=== PATIENT | female | born 1980 | race Caucasian/White ===

== ENCOUNTER 2016-08-22 13:56 | Emergency (ER) | payer MEDICARE, MEDICAID ==
[~2016-08-22] VITALS: Ht 160 cm; Wt 72.7 kg
[~2016-08-22 13:56] MED LIST: ATOM60CA PO; BUPR100T6 PO; HYDR50CA PO; OLAN10TA3 PO; OLAN20TA3 PO; TOPI100T24 PO
[2016-08-22] MEDS ORDERED: SODIUM CHLORIDE 0.9% 1,000ML IVBOLUS ONE (14:30)
[2016-08-22] MEDS ORDERED: ZIPRASIDONE 20 MG INJ IM PRN ×2 (14:30)
[2016-08-22 15:15] LABS: BLOOD UREA NITROGEN 19 mg/dL (7-18)
[2016-08-22 15:18] LABS: ASPARTATE AMINO TRANSFERASE 61 U/L (15-37)
[2016-08-22] MEDS ORDERED: ZIPRASIDONE 20 MG INJ IM ONE (15:19)
[2016-08-22 17:17] VITALS: BP 119/61
== END 2016-08-22 17:53 | disposition home or self-care (01) ==
LOC: ED 14:16
DX: Z02.89 Encounter for other administrative examinations (principal); F15.20 Other stimulant dependence, uncomplicated; Z72.89 Other problems related to lifestyle; F32.9 Major depressive disorder, single episode, unspecified; F41.1 Generalized anxiety disorder; F17.200 Nicotine dependence, unspecified, uncomplicated
CPT/HCPCS: 36415; 80053; 80307; 85025; 96360; 96361; 96372; 99285; J3486; J7030

== ENCOUNTER 2016-09-12 22:48 | Emergency (ER) | payer MEDICARE, MEDICAID ==
[~2016-09-12] VITALS: Ht 160 cm; Wt 67.0 kg
[2016-09-12 22:51] VITALS: BP 132/92
== END 2016-09-12 23:37 ==
LOC: ED 23:27
DX: Z76.0 Encounter for issue of repeat prescription (principal)
CPT/HCPCS: 99283

== ENCOUNTER 2016-12-11 13:55 | Emergency (ER) | payer MEDICARE, MEDICAID ==
[~2016-12-11] VITALS: Ht 160 cm; Wt 67.2 kg
[2016-12-11] MEDS ORDERED: LORazepam 1MG TABLET ONE (14:17)
[2016-12-11] MEDS ORDERED: DIPH,PERTUSS(ACELL),TET VAC/PF 0.5 ML IM-VACC ONE (14:17)
[2016-12-11] MEDS ORDERED: DIPHTHERIA-TETANUS ADULT 0.5ML IM-VACC ONE (14:30)
[2016-12-11] MEDS ORDERED: LORazepam 1MG TABLET PO ONE (14:30)
[2016-12-11 14:57] LABS: BLOOD UREA NITROGEN 8 mg/dL (7-18)
[2016-12-11 14:59] LABS: HEMATOCRIT 35.3 % (34.6-47.8); WHITE BLOOD COUNT 6.2 x10^3/uL (3.4-10)
[2016-12-11 15:03] LABS: ACETAMINOPHEN < 2 mcg/mL (10-30)
[2016-12-11 16:00] LABS: DAU SCREEN DISCLAIMER
[2016-12-11 16:17] LABS: HCG UR OBC PASS
[2016-12-11 17:11] VITALS: BP 111/60
== END 2016-12-11 18:15 | disposition home or self-care (01) ==
LOC: ED 16:06
DX: Z00.8 Encounter for other general examination (principal); F17.200 Nicotine dependence, unspecified, uncomplicated
CPT/HCPCS: 36415; 71010; 80048; 80307; 80329; 81001; 81025; 82040; 85025; 93005; 99285; G0480

== ENCOUNTER 2017-07-01 18:32 | Emergency (ER) | payer MEDICARE, MEDICAID ==
[~2017-07-01] VITALS: Ht 160 cm; Wt 66.9 kg
[2017-07-01 19:06] LABS: BASOPHILS # (AUTO) 0.04 x10^3/uL (0-0.1); BASOPHILS % (AUTO) 0 % (0-1); EOSINOPHILS # (AUTO) 0.08 x10^3/uL (0-0.4); EOSINOPHILS % (AUTO) 1 % (1-7); LYMPHOCYTES # (AUTO) 1.36 x10^3/uL (1-3.4); LYMPHOCYTES % (AUTO) 14 % (22-44); MD NO; MEAN CORPUSCULAR HEMOGLOBIN 31.3 pg (27.0-34.8); MEAN CORPUSCULAR HGB CONC 34.3 g/dL (32.4-35.8); MEAN CORPUSCULAR VOLUME 91.2 fL (80-100); MEAN PLATELET VOLUME 9.6 fL (7.4-10.4); MONOCYTES # (AUTO) 0.92 x10^3/uL (0.2-0.8); MONOCYTES % (AUTO) 10 % (2-9); NEUTROPHILS # (AUTO) 7.33 x10^3/uL (1.8-6.8); NEUTROPHILS % (AUTO) 75 % (42-75); PLATELET COUNT 171 x10^3/uL (130-400); RED BLOOD COUNT 4.41 x10^6/uL (3.82-5.3); RED CELL DISTRIBUTION WIDTH 13.8 % (9.6-15.2)
[2017-07-01 19:16] LABS: ALBUMIN 4.3 g/dL (3.4-5.0); ANION GAP 10 mmol/L (5-15); CALCIUM 8.2 mg/dL (8.5-10.1); CHLORIDE 104 mmol/L (98-107)
[2017-07-01 19:22] LABS: ALANINE AMINOTRANSFERASE 31 U/L (12-78); ALKALINE PHOSPHATASE 74 U/L (45-117); BILIRUBIN,TOTAL 0.6 mg/dL (0.2-1.0); CREATININE 0.99 mg/dL (0.55-1.02); SALICYLATE LEVEL 2.5 mg/dL (2.8-20.0); TOTAL PROTEIN 8.1 g/dL (6.4-8.2)
[2017-07-01 19:23] LABS: ACETAMINOPHEN < 2 mcg/mL (10-30)
[2017-07-01] MEDS ORDERED: ZIPRASIDONE 20 MG INJ IM ONE ×2 (19:41→20:00)
[2017-07-02 02:02] VITALS: BP 120/69
== END 2017-07-02 02:05 | disposition home or self-care (01) ==
LOC: ED 19:26
DX: F41.1 Generalized anxiety disorder (principal); Z72.9 Problem related to lifestyle, unspecified; F15.129 Other stimulant abuse with intoxication, unspecified; Z79.899 Other long term (current) drug therapy; F32.9 Major depressive disorder, single episode, unspecified; F43.10 Post-traumatic stress disorder, unspecified
CPT/HCPCS: 36415; 80053; 80307; 80329; 84703; 85025; 96372; 99284; J3486; G0480

== ENCOUNTER 2017-08-05 09:09 | Emergency (ER) | payer MEDICARE, MEDICAID ==
[~2017-08-05] VITALS: Ht 160 cm; Wt 68.0 kg
[2017-08-05 09:11] VITALS: BP 102/70
[2017-08-05] MEDS ORDERED: BACITRACIN ZINC OINT 500U/GM, 0.9 GM ONE (10:01)
== END 2017-08-05 10:41 | disposition home or self-care (01) ==
LOC: ED 10:35
DX: L03.115 Cellulitis of right lower limb (principal)
CPT/HCPCS: 82962; 99283

== ENCOUNTER 2017-10-11 02:17 | Emergency (ER) | payer MEDICARE, MEDICAID ==
[~2017-10-11] VITALS: Ht 167.6 cm; Wt 66.6 kg
[2017-10-11 02:18] VITALS: BP 138/63
[2017-10-11] MEDS ORDERED: LORazepam 1MG TABLET PO ONE (03:00)
[2017-10-11] MEDS ORDERED: LORazepam 1MG TABLET ONE (03:00)
== END 2017-10-11 03:24 | disposition home or self-care (01) ==
LOC: ED 03:10
DX: F41.1 Generalized anxiety disorder (principal); Z72.9 Problem related to lifestyle, unspecified; R21 Rash and other nonspecific skin eruption; F32.9 Major depressive disorder, single episode, unspecified; F43.10 Post-traumatic stress disorder, unspecified; Z88.6 Allergy status to analgesic agent; Z88.8 Allergy status to other drugs, medicaments and biological substances
CPT/HCPCS: 99284

== ENCOUNTER 2017-12-19 20:55 | Emergency (ER) | payer MEDICARE, MEDICAID ==
[~2017-12-19] VITALS: Ht 160 cm; Wt 70.0 kg
[2017-12-19 21:11] VITALS: BP 128/73
[2017-12-19] MEDS ORDERED: IBUPROFEN 200 MG TABLET PO ONE (22:00)
[2017-12-19] MEDS ORDERED: IBUPROFEN 200 MG TABLET ONE (22:24)
== END 2017-12-19 22:30 | disposition home or self-care (01) ==
LOC: ED 22:24
DX: G43.009 Migraine without aura, not intractable, without status migrainosus (principal); Z72.9 Problem related to lifestyle, unspecified; F43.10 Post-traumatic stress disorder, unspecified; F41.1 Generalized anxiety disorder
CPT/HCPCS: 99283

== ENCOUNTER 2018-10-10 15:56 | Emergency (ER) | payer OTHER, MEDICARE, MEDICAID ==
[~2018-10-10] VITALS: Ht 160 cm; Wt 81.0 kg
[~2018-10-10 15:56] MED LIST changes: +HYDR100C2 PO
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
--- NOTE | 2018-10-10 16:14 | NUR ---
DR TORRES AT BEDSIDE TO DORITA PT
--- NOTE | 2018-10-10 16:19 | NUR ---
WHEN CHECKING PUPILS, PT BEGINS SHAKING HEAD "NO" AND MOANING. TURNED HEAD TO SIDE UPON COMMAND. REPEATS "COLD" WHEN BLANKET REMOVED.
--- NOTE | 2018-10-10 16:20 | NUR ---
REPORT TO VAZQUEZ ROSAS.
[2018-10-10 16:44] LABS: BASOPHILS # (AUTO) 0.02 x10^3/uL (0-0.1); BASOPHILS % (AUTO) 0 % (0-1); EOSINOPHILS # (AUTO) 0.13 x10^3/uL (0-0.4); EOSINOPHILS % (AUTO) 1 % (1-7); LYMPHOCYTES # (AUTO) 0.88 x10^3/uL (1-3.4); LYMPHOCYTES % (AUTO) 9 % (22-44); MD NO; MEAN CORPUSCULAR HEMOGLOBIN 29.6 pg (27.0-34.8); MEAN CORPUSCULAR HGB CONC 32.7 g/dL (32.4-35.8); MEAN CORPUSCULAR VOLUME 90.3 fL (80-100); MONOCYTES # (AUTO) 0.37 x10^3/uL (0.2-0.8); MONOCYTES % (AUTO) 4 % (2-9); NEUTROPHILS # (AUTO) 8.53 x10^3/uL (1.8-6.8); NEUTROPHILS % (AUTO) 86 % (42-75); PLATELET COUNT 183 x10^3/uL (130-400); RED BLOOD COUNT 4.46 x10^6/uL (3.82-5.3); RED CELL DISTRIBUTION WIDTH 15.5 % (9.6-15.2)
--- NOTE | 2018-10-10 16:45 | NUR ---
TO CT VIA [facility]
[2018-10-10 16:53] LABS: INTERNATIONAL NORMALIZED RATIO 1.03 (0.93-1.1); PROTHROMBIN TIME 10.8 Seconds (9.6-11.5)
[2018-10-10 16:54] LABS: ALANINE AMINOTRANSFERASE 39 U/L (12-78); ALBUMIN 3.7 g/dL (3.4-5.0); ANION GAP 8 mmol/L (5-15); CALCIUM 8.3 mg/dL (8.5-10.1); CHLORIDE 109 mmol/L (98-107); CREATININE 0.74 mg/dL (0.55-1.02)
[2018-10-10 16:59] LABS: ALKALINE PHOSPHATASE 62 U/L (45-117); BILIRUBIN,TOTAL 0.5 mg/dL (0.2-1.0); TOTAL PROTEIN 7.3 g/dL (6.4-8.2)
--- NOTE | 2018-10-10 17:08 | NUR ---
PT LYING ON RIGHT SIDE, EYES CLOSED. BREATHING EVEN AND UNLABORED. PT IN CUSTODY WITH POLICE AT BEDSIDE.
--- NOTE | 2018-10-10 18:23 | NUR ---
REMAINS DROWSY, EYES CLOSED. STRAIGHT CATH URINE OBTAINED
[2018-10-10 18:41] LABS: AMPHETAMINE SCREEN, URINE Positive (Negative); BARBITURATE SCREEN, URINE Negative (Negative); BENZODIAZEPINE SCREEN, URINE Positive (Negative); CANNABINOID SCREEN, URINE Positive (Negative); COCAINE SCREEN, URINE Negative (Negative); METHADONE SCREEN, URINE Negative (Negative); OPIATE SCREEN, URINE Negative (Negative)
--- NOTE | 2018-10-10 18:51 | NUR ---
REPORT RECEIVED FROM VAZQUEZ ROSAS.
[2018-10-10 18:52] VITALS: BP 104/59
--- NOTE | 2018-10-10 18:52 | NUR ---
REMAINS SOMBULANT. RE-EVALUATING PT. REPORT TO MT ROSAS
--- NOTE | 2018-10-10 19:14 | NUR ---
PT GIVEN DC INSTRUCTIONS. PT'S AOX4. RESPS EVEN AND UNLABAORED. NO ACUTE DISTRESS AT DC. PT WHEELED TO DC.
== END 2018-10-10 19:15 | disposition home or self-care (01) ==
LOC: ED 16:24
DX: F15.129 Other stimulant abuse with intoxication, unspecified (principal); F12.129 Cannabis abuse with intoxication, unspecified; F17.200 Nicotine dependence, unspecified, uncomplicated
CPT/HCPCS: 36415; 70450; 70486; 80053; 80307; 84703; 85025; 85610; 85730; 99284

== ENCOUNTER 2019-05-11 14:50 | Emergency (ER) | payer MEDICARE, MEDICAID | END 2019-05-11 15:29 | LOC: ED 15:23 | DX: Z53.21 Procedure and treatment not carried out due to patient leaving prior to being seen by health care provider (principal) ==

== ENCOUNTER 2019-05-11 19:42 | Emergency (ER) | payer MEDICARE, MEDICAID ==
[~2019-05-11] VITALS: Ht 160 cm; Wt 72.1 kg
[2019-05-11 19:46] VITALS: BP 155/77
[2019-05-11] MEDS ORDERED: LORazepam 1MG TABLET ONE (20:17)
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
[2019-05-11] MEDS ORDERED: LORazepam 1MG TABLET PO ONE (20:30)
[2019-05-11 20:41] LABS: BASOPHILS % (AUTO) 1 % (0-1); EOSINOPHILS # (AUTO) 0.26 x10^3/uL (0-0.4); EOSINOPHILS % (AUTO) 2 % (1-7); LYMPHOCYTES # (AUTO) 3.55 x10^3/uL (1-3.4); LYMPHOCYTES % (AUTO) 30 % (22-44); MD NO; MEAN CORPUSCULAR HGB CONC 33.7 g/dL (32.4-35.8); MEAN CORPUSCULAR VOLUME 88.9 fL (80-100); MEAN PLATELET VOLUME 10.8 fL (7.4-10.4); MONOCYTES # (AUTO) 0.95 x10^3/uL (0.2-0.8); MONOCYTES % (AUTO) 8 % (2-9); NEUTROPHILS # (AUTO) 7.05 x10^3/uL (1.8-6.8); NEUTROPHILS % (AUTO) 59 % (42-75); PLATELET COUNT 175 x10^3/uL (130-400); RED BLOOD COUNT 4.56 x10^6/uL (3.82-5.3); RED CELL DISTRIBUTION WIDTH 14.8 % (9.6-15.2)
[2019-05-11 20:48] LABS: ALANINE AMINOTRANSFERASE 15 U/L (12-78); ALBUMIN 3.7 g/dL (3.4-5.0); ANION GAP 6 mmol/L (5-15); CALCIUM 8.6 mg/dL (8.5-10.1); CHLORIDE 110 mmol/L (98-107); SALICYLATE LEVEL 3.9 mg/dL (2.8-20.0)
[2019-05-11 20:50] LABS: ALKALINE PHOSPHATASE 59 U/L (45-117); BILIRUBIN,TOTAL 0.2 mg/dL (0.2-1.0); CREATININE 0.93 mg/dL (0.55-1.02); TOTAL PROTEIN 7.1 g/dL (6.4-8.2)
--- NOTE | 2019-05-11 20:50 | NUR ---
NICKY MODI TO ROOM TO DISCUSS RX. PATIENT MEDICATED PER EMAR
--- NOTE | 2019-05-11 21:03 | NUR ---
PATIENT RESTING ON GURNEY, TALKING QUIETLT TO SELF, PLAYING MUSIC IN ROOM. REFUSED VITAL SIGNS AT THIS TIME.
--- NOTE | 2019-05-11 21:45 | NUR ---
PATIENT SLEEPING AT THIS TIME, RESPIRATIONS EVEN AND UNLABORED. CALL LIGHT IN REACH.
--- NOTE | 2019-05-11 23:00 | NUR ---
SITTER TO ROOM TO DO Q15 CHECKS ON PATIENT
--- NOTE | 2019-05-11 23:09 | NUR ---
PATIENT SLEEPING AT THIS TIME, RESPIRATIONS EVEN AND UNLABORED. CALL LIGHT IN REACH.
--- NOTE | 2019-05-11 23:20 | NUR ---
UPON REASSESSMENT OF MD AND PA, NO SITTER NECESSARY FOR THIS PATIENT
--- NOTE | 2019-05-11 23:36 | NUR ---
PATIENT AWOKE TO SHAKE OF THE ARM, DID NOT ANSWER QUESTIONS, WENT BACK TO SLEEP. PA IN ROOM
--- NOTE | 2019-05-12 00:41 | NUR ---
BREAK RN FOR PRIMARY RN JEREMIE. PT RESTING WITH EYES CLOSED ON ED GURNEY, WILL NOT AROUSE TO VERBALI STIMULI BUT RESPONDS TO TOUCH OF ARM AND THEN BACK TO SLEEP. VSS. CONT PULSE OX IN PLACE, 95% RA. FALL PRECAUTIONS IN PLACE. SIDE RAILS UPX2.
--- NOTE | 2019-05-12 01:10 | NUR ---
BEDSIDE REPORT AND TRANSFER OF CARE BACK TO PRIMARY RN JEREMIE
--- NOTE | 2019-05-12 01:44 | NUR ---
PATIENT AWOKE TO VERBAL AND PHYSICAL STIMULI, ATTEMPTED TO SWING FIST AT NICKY MODI. ASSISTED PATIENT IN PUTTING PANTS AND SHOES ON, INSTRUCTED TO FINISH GETTING HERSELF DRESSED. PATIENT REFUSING TO PUT JACKETS ON OR GET OUT OF BED, PATIENT REFUSING TO SIGN DISCHARGE PAPERWORK. SECURITY CALLED AT [phone]
--- NOTE | 2019-05-12 01:59 | NUR ---
PATIENT ESCORTED OUT BY [facility], PROVIDED PATIENT WITH TAXI VOUCHER TO HALF-WAY SHE IS CURRENTLY STAYING AT
== END 2019-05-12 02:02 | disposition home or self-care (01) ==
LOC: ED 05-12 00:36
DX: F41.1 Generalized anxiety disorder (principal); F22 Delusional disorders; F12.10 Cannabis abuse, uncomplicated; Z72.9 Problem related to lifestyle, unspecified
CPT/HCPCS: 36415; 80053; 80307; 85025; 99283

== ENCOUNTER 2019-05-14 17:28 | Emergency (ER) | payer MEDICARE, MEDICAID ==
[~2019-05-14] VITALS: Ht 167.6 cm; Wt 70.0 kg
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
[2019-05-14 17:59] LABS: BASOPHILS # (AUTO) 0.03 x10^3/uL (0-0.1); BASOPHILS % (AUTO) 0 % (0-1); EOSINOPHILS # (AUTO) 0.14 x10^3/uL (0-0.4); EOSINOPHILS % (AUTO) 2 % (1-7); LYMPHOCYTES # (AUTO) 2.53 x10^3/uL (1-3.4); LYMPHOCYTES % (AUTO) 29 % (22-44); MEAN CORPUSCULAR HEMOGLOBIN 29.9 pg (27.0-34.8); MEAN CORPUSCULAR HGB CONC 33.5 g/dL (32.4-35.8); MEAN CORPUSCULAR VOLUME 89.2 fL (80-100); MEAN PLATELET VOLUME 9.9 fL (7.4-10.4); MONOCYTES # (AUTO) 0.64 x10^3/uL (0.2-0.8); MONOCYTES % (AUTO) 7 % (2-9); NEUTROPHILS % (AUTO) 62 % (42-75); PLATELET COUNT 170 x10^3/uL (130-400); RED BLOOD COUNT 4.28 x10^6/uL (3.82-5.3); RED CELL DISTRIBUTION WIDTH 15.1 % (9.6-15.2)
[2019-05-14 18:00] LABS: MD NO
[2019-05-14] MEDS ORDERED: ZIPRASIDONE 20 MG INJ IM ONE ×2 (18:00→18:24)
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
[2019-05-14 18:05] LABS: ALBUMIN 3.6 g/dL (3.4-5.0); ANION GAP 6 mmol/L (5-15); CALCIUM 8.2 mg/dL (8.5-10.1); CHLORIDE 114 mmol/L (98-107); CREATININE 0.74 mg/dL (0.55-1.02); SALICYLATE LEVEL 3.9 mg/dL (2.8-20.0)
--- NOTE | 2019-05-14 19:21 | NUR ---
PT IS YELLING TOWARDS STAFF, TN REMOVED SPIT MASK, SITTER PRESENT
--- NOTE | 2019-05-14 20:00 | NUR ---
PT OFFERED WATER. PT IS YELLING, AND SPITTING TOWARDS STAFF. PT WIGGLED OUT OF SPIT MASK. SITTER PRESENT.
--- NOTE | 2019-05-14 20:35 | NUR ---
PT SLEEPING, CIRCULATION WDL, RESTRAINTS IN PLAC.E
--- NOTE | 2019-05-14 20:57 | NUR ---
REPORT TO MAURICE
--- NOTE | 2019-05-14 21:04 | NUR ---
received report from RALPH Godoy.
--- NOTE | 2019-05-14 21:15 | NUR ---
patient sleeping at this time. received on 4 points restraints. patient down to 2 points at this time.
--- NOTE | 2019-05-14 23:23 | NUR ---
no changes. patient sleeping. respiration unlabored. sitter at the door.
--- NOTE | 2019-05-14 23:41 | NUR ---
TP RN: DELAY IN FAXING PAPERWORK DUE TO THE NEED FOR DRUG SCREEN. PT UNABLE TO PROVIDE A UA AT THIS TIME.
--- NOTE | 2019-05-15 01:09 | NUR ---
BREAK RN: PT SLEEPING, RESPIRATIONS EVEN AND UNLABORED, SITTER OUTSIDE DOOR, REMAINS SECURE.
--- NOTE | 2019-05-15 02:28 | NUR ---
patient woke up and went to the bathroom right away and didnt provided urine sample.
[2019-05-15] MEDS ORDERED: ZIPRASIDONE 20 MG INJ IM ONE ×4 (02:32→06:00)
--- NOTE | 2019-05-15 02:43 | NUR ---
patient pacing inside the room, cooperate to change for a gown. 1 belonging bag placed in locker. MD aware of agitation. meds ordered.
--- NOTE | 2019-05-15 02:47 | NUR ---
patient medicated for agitation.
--- NOTE | 2019-05-15 03:03 | NUR ---
crackers and water provided
--- NOTE | 2019-05-15 03:24 | NUR ---
REPORT FROM MAURICE ROSAS. ASSUMING CARE AT THIS TIME
--- NOTE | 2019-05-15 03:49 | NUR ---
PT SLEEPING ON GURNEY AT THIS TIME. SITTER REMAINS IN THE HALLWAY FOR SAFETY.
--- NOTE | 2019-05-15 05:01 | NUR ---
PT RESTING ON TESSA
--- NOTE | 2019-05-15 05:45 | NUR ---
URINE SAMPLE OBTAINED AND TAKEN TO LAB. PT AWAKE AND TALKING TO SITTER.
--- NOTE | 2019-05-15 05:46 | NUR ---
DIET TRAY ORDERED
--- NOTE | 2019-05-15 05:48 | NUR ---
PT PACING ROOM SPEAKING IN TANGENTIAL SENTENCES. PT RESTLESS AND UNABLE TO SIT STILL MD TO BE UPDATED
--- NOTE | 2019-05-15 05:57 | NUR ---
ADDITIONAL ORDER RECIEVED, PT MEDICATED PER MAR
[2019-05-15 06:21] LABS: AMPHETAMINE SCREEN, URINE Positive (Negative); BARBITURATE SCREEN, URINE Negative (Negative); BENZODIAZEPINE SCREEN, URINE Negative (Negative); CANNABINOID SCREEN, URINE Positive (Negative); COCAINE SCREEN, URINE Negative (Negative); METHADONE SCREEN, URINE Negative (Negative); OPIATE SCREEN, URINE Negative (Negative)
--- NOTE | 2019-05-15 06:32 | NUR ---
referral was faxed to [facility], [facility], [facility], [facility], and [facility]
--- NOTE | 2019-05-15 06:39 | NUR ---
PT NOW SLEEPING ON GURNEY, RESP EVEN AND UNLABORED.
--- NOTE | 2019-05-15 06:54 | NUR ---
REPORT TO DERRICK ROSAS
[2019-05-15 10:07] VITALS: BP 115/75
--- NOTE | 2019-05-15 11:16 | NUR ---
THROUGHPUT: HOSPICE TEAM LEAD TO SEE PT.
--- NOTE | 2019-05-15 12:06 | NUR ---
PSYCH KEY ENTRY OPERATOR TO BEDSIDE TO SPEAK TO PATIENT.
--- NOTE | 2019-05-15 12:06 | NUR ---
BREAK RN: PT SLEEPING, RESPIRATIONS EVEN AND UNLABORED, SITTER OUTSIDE DOOR, REMAINS SECURE.
[2019-05-15] MEDS ORDERED: MIRT15TA PO (12:42)
[2019-05-15] MEDS ORDERED: ARIP15TA3 PO (12:42)
--- NOTE | 2019-05-15 12:43 | NUR ---
PT PROVIDED WITH MEAL TRAY. SITTER MONITORING FROM [facility]. PT DENIES FURTHER NEEDS AT THIS TIME
[2019-05-15] MEDS ORDERED: ARIPIPRAZOLE 15 MG TABLET PO SCH (13:00)
[2019-05-15] MEDS ORDERED: ARIPIPRAZOLE 400 MG INJ NC IM ONE (13:00)
[2019-05-15] MEDS ORDERED: ARIPIPRAZOLE 5 MG TABLET ONE (13:42)
[2019-05-15] MEDS ORDERED: ARIPIPRAZOLE 10 MG TABLET ONE (13:42)
--- NOTE | 2019-05-15 13:45 | NUR ---
PT PROVIDED WITH WATER. DENIES FURTHER NEEDS AT THIS TIME. SITTER MONITORING FOR SAFETY
== END 2019-05-15 17:22 | disposition home or self-care (01) ==
LOC: ED 05-15 03:17
DX: F23 Brief psychotic disorder (principal); F25.0 Schizoaffective disorder, bipolar type; F17.210 Nicotine dependence, cigarettes, uncomplicated; F32.9 Major depressive disorder, single episode, unspecified; F43.10 Post-traumatic stress disorder, unspecified; F15.14 Other stimulant abuse with stimulant-induced mood disorder
CPT/HCPCS: 36415; 80048; 80307; 82040; 84702; 85025; 96372; 99284; J3486; 99283

== ENCOUNTER 2019-06-06 00:02 | Emergency (ER) | payer MEDICARE, MEDICAID ==
[~2019-06-06] VITALS: Ht 160 cm; Wt 71.0 kg
[~2019-06-06 00:02] MED LIST changes: +ARIP15TA3 PO; +MIRT15TA PO
--- NOTE | 2019-06-06 01:05 | NUR ---
pt called back to room from lobby
--- NOTE | 2019-06-06 01:53 | NUR ---
Pt is a poor historian in the room with mumbling and disorganized speech.
[2019-06-06 02:06] VITALS: BP 106/58
== END 2019-06-06 02:10 | disposition home or self-care (01) ==
LOC: ED 01:46
DX: F41.1 Generalized anxiety disorder (principal); H10.022 Other mucopurulent conjunctivitis, left eye; R00.0 Tachycardia, unspecified; Z72.9 Problem related to lifestyle, unspecified; F20.9 Schizophrenia, unspecified; F43.10 Post-traumatic stress disorder, unspecified; F32.9 Major depressive disorder, single episode, unspecified
CPT/HCPCS: 99283

== ENCOUNTER 2020-04-08 15:14 | Emergency (ER) | payer MEDICARE, MEDICAID ==
[~2020-04-08] VITALS: Ht 167.6 cm; Wt 55.0 kg
[~2020-04-08 15:14] MED LIST changes: +MIRT-37 PO; -MIRT15TA PO
[2020-04-08] MEDS ORDERED: ZIPRASIDONE 20 MG INJ IM ONE (15:30)
[2020-04-08 15:41] VITALS: BP 120/75
[2020-04-08 15:42] LABS: BASOPHILS % (AUTO) 1 % (0-1); EOSINOPHILS % (AUTO) 1 % (1-7); LYMPHOCYTES % (AUTO) 22 % (22-44); MEAN CORPUSCULAR HEMOGLOBIN 30.4 pg (27.0-34.8); MEAN CORPUSCULAR HGB CONC 33.8 g/dL (32.4-35.8); MEAN PLATELET VOLUME 9.6 fL (7.4-10.4); MONOCYTES % (AUTO) 7 % (2-9); NEUTROPHILS % (AUTO) 69 % (42-75); PLATELET COUNT 215 x10^3/uL (130-400); RED BLOOD COUNT 4.42 x10^6/uL (3.82-5.3); RED CELL DISTRIBUTION WIDTH 13.6 % (9.6-15.2)
[2020-04-08 15:46] LABS: MD NO
[2020-04-08] MEDS ORDERED: PLEASE ENTER HEIGHT AND WEIGHT MC SCH (16:00)
[2020-04-08 16:09] LABS: ALBUMIN 4.2 g/dL (3.4-5.0); ANION GAP 6 mmol/L (5-15); CALCIUM 9.2 mg/dL (8.5-10.1); CHLORIDE 108 mmol/L (98-107); CREATININE 0.89 mg/dL (0.55-1.02); SALICYLATE LEVEL 2.5 mg/dL (2.8-20.0)
--- NOTE | 2020-04-08 16:55 | NUR ---
PROGRAM DIRECTOR SCOUTING IN TO SEE PT. PT SLEEPING SOUNDLY AT THIS TIME.
--- NOTE | 2020-04-08 18:30 | NUR ---
PT PROVIDED DC INSTRUCTS. PT YELLING, "I WANT TO SLEEP, LEAVE ME ALONE" DC INSTRUCTS PROVIDED, PT NOT RECEPTIVE TO INSTRUCTS CONTINUALLY YELLING OVER THIS RN. SECURITY CALLED TO ASSIST.
--- NOTE | 2020-04-08 18:43 | NUR ---
SECURITY CALLED TO ASSIST WITH GETTING PT DISCHARGED FROM ED.
== END 2020-04-08 18:57 | disposition home or self-care (01) ==
LOC: ED 17:39
DX: F15.159 Other stimulant abuse with stimulant-induced psychotic disorder, unspecified (principal); F22 Delusional disorders
CPT/HCPCS: 36415; 80048; 80299; 80320; 80329; 82040; 85025; 99283; G0480

== ENCOUNTER 2020-04-15 05:40 | Emergency (ER) | payer MEDICARE ==
[~2020-04-15] VITALS: Ht 157.5 cm; Wt 54.0 kg
[2020-04-15 05:43] VITALS: BP 139/69
--- NOTE | 2020-04-15 05:50 | NUR ---
LATE ENTRY D/T PT CARE: THIS RN TO BEDSIDE, PT STANDING IN ROOM STICKING PT LABELS ON BOARDS AND VARELA IN ROOM, RN INFORMED PT WE NEED THOSE LABELS AND CANT HAVE THEM STUCK ACROSS ROOM, AT THIS TIME PT HANDED RN LABELS THEN WHEN RN TURNED TO REMOVE STICKERS PT THREW CHAPSTICK AT RN. WHEN INFORMED THAT WAS INAPPROPRIATE BEHAVIOR PT GRABBED PERSONAL BELONGINGS AND BED SHEET AND WALKED OUT OF ER. PT NAD, STEADY AND EVEN GAIT UPON ELOPEMENT.
== END 2020-04-15 06:03 | disposition left against medical advice (07) ==
LOC: ED 05:57
DX: T16.1XXA Foreign body in right ear, initial encounter (principal); Z53.21 Procedure and treatment not carried out due to patient leaving prior to being seen by health care provider; X58.XXXA Exposure to other specified factors, initial encounter; Y93.89 Activity, other specified; Y92.89 Other specified places as the place of occurrence of the external cause; Y99.8 Other external cause status

== ENCOUNTER 2020-05-15 01:48 | Emergency (ER) | payer MEDICARE ==
[~2020-05-15] VITALS: Ht 157.5 cm; Wt 61.0 kg
[2020-05-15] MEDS ORDERED: LORazepam 0.5MG TABLET PO ONE (02:30)
[2020-05-15] MEDS ORDERED: LORazepam 0.5MG TABLET ONE (02:33)
[2020-05-15 02:51] VITALS: BP 131/79
--- NOTE | 2020-05-15 02:52 | NUR ---
Pt medicated per order. Pt given Taxi voucher. Pt ambulatroy out of ED without difficulty. Pt A&O, calm and cooperative. Shoes given.
== END 2020-05-15 02:54 | disposition home or self-care (01) ==
LOC: ED 02:48
DX: F41.9 Anxiety disorder, unspecified (principal); F15.10 Other stimulant abuse, uncomplicated
CPT/HCPCS: 99283